=== PATIENT | female | born 1960 | race African-American/Black ===

== ENCOUNTER 2020-01-07 17:12 | Inpatient (IN) | payer OTHER ==
[~2020-01-07] VITALS: Ht 167.6 cm; Wt 80.1 kg
[2020-01-07 17:29] VITALS: BP 174/96
--- NOTE | 2020-01-07 17:59 | Diagnostic Imaging Report ---
Indications: Headache, trauma, status post fall Technique: Spiral acquisitions obtained through the brain. Angled axial and coronal 5 x 5 mm slices were reconstructed. Total dose length product 1072 mGycm. CTDI vol(s) 53 mGy. Dose reduction achieved using automated exposure control Comparison: None. Findings: There is age-related enlargement of the ventricles and extra-axial CSF spaces. Mild periventricular deep white matter low-attenuation is consistent with chronic microvascular ischemic change. The mastoids are clear. Visualized orbits and sinuses are unremarkable. The calvarium is intact Impression: Mild age-related changes. Negative for acute intracranial bleed or mass effect This agrees with the preliminary interpretation provided overnight by [facility]. The CT scanner at [facility] is accredited by the [employer] and the scans are performed using protocols designed to limit radiation exposure to as low as reasonably achievable to attain images of sufficient resolution adequate for diagnostic evaluation.
[2020-01-07 18:47] LABS: BASOPHILS % (AUTO) 0.7 % (0.0-2.0); HEMATOCRIT 46.8 % (37.0-47.0); HEMOGLOBIN 15.7 G/DL (12.0-16.0); LYMPHOCYTES % (AUTO) 21.6 % (20.0-45.0); MEAN CORPUSCULAR VOLUME 106 FL (80-99); MONOCYTES % (AUTO) 2.3 % (1.0-10.0); NEUTROPHILS % (AUTO) 75.3 % (45.0-75.0); PLATELET COUNT 375 K/UL (150-450); RED BLOOD COUNT 4.42 M/UL (4.20-5.40); RED CELL DISTRIBUTION WIDTH 11.7 % (11.6-14.8); WHITE BLOOD COUNT 9.7 K/UL (4.8-10.8)
[2020-01-07 18:50] LABS: APPEARANCE,URINE CLEAR; BILIRUBIN, URINE NEGATIVE (NEGATIVE); COLOR,URINE PALE YELLOW; GLUCOSE, URINE (UA) NEGATIVE (NEGATIVE); KETONES,URINE 1+ (NEGATIVE); LEUKOCYTE ESTERASE ,URINE NEGATIVE (NEGATIVE); NITRITE,URINE NEGATIVE (NEGATIVE); PH,URINE 5 (4.5-8.0); PROTEIN,URINE NEGATIVE (NEGATIVE); UROBILINOGEN,URINE NORMAL MG/DL (0.0-1.0)
[2020-01-07 18:53] LABS: ANION GAP 13 mmol/L (5-15); BLOOD UREA NITROGEN 8 mg/dL (7-18); CALCIUM 10.2 MG/DL (8.5-10.1); CARBON DIOXIDE 29 MMOL/L (21-32); CHLORIDE 100 MMOL/L (98-107); CREATININE 0.8 MG/DL (0.55-1.30); POTASSIUM 4.6 MMOL/L (3.5-5.1); SODIUM 142 MMOL/L (136-145)
[2020-01-07 19:03] LABS: ALANINE AMINOTRANSFERASE 48 U/L (12-78); ALBUMIN 3.9 G/DL (3.4-5.0); ALBUMIN/GLOBULIN RATIO 0.8 (1.0-2.7); ALKALINE PHOSPHATASE 184 U/L (46-116); ASPARTATE AMINO TRANSFERASE 71 U/L (15-37); BILIRUBIN,TOTAL 0.3 MG/DL (0.2-1.0)
[2020-01-07 19:15] VITALS: BP 123/80
[2020-01-07] MEDS ORDERED: Dextrose 10% 1,000 ML IV SCH ×2 (19:45→22:00)
--- NOTE | 2020-01-07 20:11 | Emergency Room Report ---
History of Present Illness General Chief Complaint: General Complaint Source: Patient Present Illness HPI 59-year-old female presents ED for evaluation of fall and weakness. Family at bedside states that patient had fall in bathroom at work. Hit her head. When EMS arrived stated that her blood sugar was 23. Was given glucose. Accu-Chek improved in ER triage. States that she is a diabetic. Takes Januvia. States that she is compliant with her medications. States that she did skip a meal. States that earlier this week she felt lightheaded and dizzy a few times. No change in dosage. Denies chest pain or shortness of breath. No other aggravating relieving factors. Denies any other associated symptoms Allergies: Coded Allergies: No Known Allergies (Unverified , 01/07/20) Patient History Past Medical History: DM, HTN Past Surgical History: none Pertinent Family History: none Social History: Denies: smoking, alcohol use, drug use Now: No Immunizations: UTD Reviewed Nursing Documentation: PMH: Agreed; PSxH: Agreed Nursing Documentation-PMH Past Medical History: No History, Except For Hx Hypertension: Yes Hx Diabetes: Yes Review of Systems All Other Systems: negative except mentioned in HPI Physical Exam Vital Signs Date Time Temp Pulse Resp B/P (MAP) Pulse Ox O2 Delivery O2 Flow Rate FiO2 01/07/20 17:20 98.2 111 16 174/96 (122) 95 Room Air Sp02 EP Interpretation: reviewed, normal General Appearance: no apparent distress, alert, GCS 15, non-toxic Head: normocephalic, atraumatic Eyes: bilateral eye normal inspection, bilateral eye PERRL ENT: hearing grossly normal, normal pharynx, no angioedema, normal voice Neck: full range of motion, supple/symm/no masses Respiratory: chest non-tender, lungs clear, normal breath sounds, speaking full sentences Cardiovascular #1: regular rate, rhythm, no edema Cardiovascular #2: 2+ carotid (R), 2+ carotid (L), 2+ radial (R), 2+ radial (L) , 2+ dorsalis pedis (R), 2+ dorsalis pedis (L) Gastrointestinal: normal bowel sounds, non tender, soft, non-distended, no guarding, no rebound Rectal: deferred Genitourinary: normal inspection, no CVA tenderness Musculoskeletal: back normal, normal range of motion, gait/station normal, non- tender Neurologic: alert, motor strength/tone normal, oriented x3, sensory intact, responsive, speech normal Psychiatric: judgement/insight normal, memory normal, mood/affect normal, no suicidal/homicidal ideation Reflexes: 3+ bicep (R), 3+ bicep (L), 3+ tricep (R), 3+ tricep (L), 3+ knee (R) , 3+ knee (L) Lymphatic: no adenopathy Medical Decision Making Diagnostic Impression: Primary Impression: Hypoglycemia Additional Impression: Head injury Qualified Codes: S09.90XA - Unspecified injury of head, initial encounter ER Course Hospital Course 59-year-old female presenting to ED with generalized weakness, fall with head injury; low FS in field Differential diagnoses include: dehyration, sepsis, hypoglycemia Clinical course Patient placed on stretcher. On home help aide. After initial history and physical I ordered labs, food, EKG, CT head She again became hypoglycemic. Given food. Labs-glucose 87, electrolytes ok, no leukocytosis, hb/hct stable EKG - NSR, no acute ischemic changes interpreted by me CXr - no acute process CT head - no acute process Patient states that multiple times this week she had similar weakness dizzy episodes probably due to becoming hypoglycemic. Case discussed with Dr. Braden and he agreed to accept the patient to his service for further care and support i. I feel this is a highly complex case requiring extensive working including EKG/Rhythm strip, Xray/CT/US, Blood/urine lab work, repeat exams while in ED, and administration of strong opiates/narcotics for pain control, admission to hospital or close patient follow up. diagnosis - hypoglycemia, head injury admitted to floor in serious condition Labs Test 01/07/20 18:00 White Blood Count 9.7 K/UL (4.8-10.8) Red Blood Count 4.42 M/UL (4.20-5.40) Hemoglobin 15.7 G/DL (12.0-16.0) Hematocrit 46.8 % (37.0-47.0) Mean Corpuscular Volume 106 FL (80-99) Mean Corpuscular Hemoglobin 35.6 PG (27.0-31.0) Mean Corpuscular Hemoglobin Concent 33.6 G/DL (32.0-36.0) Red Cell Distribution Width 11.7 % (11.6-14.8) Platelet Count 375 K/UL (150-450) Mean Platelet Volume 6.7 FL (6.5-10.1) Neutrophils (%) (Auto) 75.3 % (45.0-75.0) Lymphocytes (%) (Auto) 21.6 % (20.0-45.0) Monocytes (%) (Auto) 2.3 % (1.0-10.0) Eosinophils (%) (Auto) 0.0 % (0.0-3.0) Basophils (%) (Auto) 0.7 % (0.0-2.0) Urine Color Pale yellow Urine Appearance Clear Urine pH 5 (4.5-8.0) Urine Specific [place] 1.015 (1.005-1.035) Urine Protein Negative (NEGATIVE) Urine Glucose (UA) Negative (NEGATIVE) Urine Ketones 1+ (NEGATIVE) Urine Blood Negative (NEGATIVE) Urine Nitrite Negative (NEGATIVE) Urine Bilirubin Negative (NEGATIVE) Urine Urobilinogen Normal MG/DL (0.0-1.0) Urine Leukocyte Esterase Negative (NEGATIVE) Sodium Level 142 MMOL/L (136-145) Potassium Level 4.6 MMOL/L (3.5-5.1) Chloride Level 100 MMOL/L (98-107) Carbon Dioxide Level 29 MMOL/L (21-32) Anion Gap 13 mmol/L (5-15) Blood Urea Nitrogen 8 mg/dL (7-18) Creatinine 0.8 MG/DL (0.55-1.30) Estimat Glomerular Filtration Rate > 60 mL/min (>60) Glucose Level 87 MG/DL (74-106) Calcium Level 10.2 MG/DL (8.5-10.1) Total Bilirubin 0.3 MG/DL (0.2-1.0) Aspartate Amino Transf (AST/SGOT) 71 U/L (15-37) Alanine Aminotransferase (ALT/SGPT) 48 U/L (12-78) Alkaline Phosphatase 184 U/L (46-116) Troponin I 0.000 ng/mL (0.000-0.056) Pro-B-Type Natriuretic Peptide 60 pg/mL (0-125) Total Protein 8.6 G/DL (6.4-8.2) Albumin 3.9 G/DL (3.4-5.0) Globulin 4.7 g/dL Albumin/Globulin Ratio 0.8 (1.0-2.7) EKG Diagnostic Results Rate: normal Rhythm: NSR ST Segments: no acute changes ASA given to the pt in ED: No Rhythm Strip Diag. Results EP Interpretation: yes Rhythm: NSR, no PVC's, no ectopy Chest X-Ray Diagnostic Results Chest X-Ray Diagnostic Results : Chest X-Ray Ordered: Yes # of Views/Limited/Complete: 1 View Indication: Other EP Interpretation: Yes Interpretation: no consolidation, no effusion, no pneumothorax, no acute cardiopulmonary disease Impression: No acute disease Electronically Signed by: Electronically signed by Jermaine Grace MD CT/MRI/US Diagnostic Results CT/MRI/US Diagnostic Results : Imaging Test Ordered: CT Head Impression no acute process Last Vital Signs Date Time Temp Pulse Resp B/P (MAP) Pulse Ox O2 Delivery O2 Flow Rate FiO2 01/07/20 19:15 98.2 110 20 123/80 99 Room Air Status: improved Disposition: ADMITTED INPATIENT Condition: Serious Referrals: [facility],REFERRING (PCP) Jermaine Grace MD Jan 07, 2020 20:11
[2020-01-07 20:30] VITALS: BP 139/85
[2020-01-07] MEDS ORDERED: JANUMET 50-1,01 EACH ORAL (23:05)
[2020-01-07] MEDS ORDERED: NORVASC10 MG ORAL (23:05)
[2020-01-07] MEDS ORDERED: GLIPIZIDE ER10 MG PO (23:05)
[2020-01-07] MEDS ORDERED: LISINOPRIL40 MG ORAL (23:05)
[2020-01-07] MEDS ORDERED: ASPIRIN81 M3 PO (23:05)
[2020-01-08] VITALS (7 sets, daily range): BP systolic 108–129; BP diastolic 62–86
[2020-01-08 07:08] LABS: BASOPHILS % (AUTO) 1.4 % (0.0-2.0); EOSINOPHILS % (AUTO) 0.4 % (0.0-3.0); HEMATOCRIT 38.2 % (37.0-47.0); HEMOGLOBIN 13.6 G/DL (12.0-16.0); LYMPHOCYTES % (AUTO) 35.9 % (20.0-45.0); MEAN CORPUSCULAR VOLUME 102 FL (80-99); MONOCYTES % (AUTO) 6.4 % (1.0-10.0); PLATELET COUNT 310 K/UL (150-450); RED BLOOD COUNT 3.73 M/UL (4.20-5.40); RED CELL DISTRIBUTION WIDTH 10.9 % (11.6-14.8); WHITE BLOOD COUNT 5.9 K/UL (4.8-10.8)
[2020-01-08 07:20] LABS: ANION GAP 9 mmol/L (5-15); BLOOD UREA NITROGEN 9 mg/dL (7-18); CALCIUM 9.5 MG/DL (8.5-10.1); CARBON DIOXIDE 28 MMOL/L (21-32); CHLORIDE 103 MMOL/L (98-107); CREATININE 0.7 MG/DL (0.55-1.30); POTASSIUM 4.5 MMOL/L (3.5-5.1); SODIUM 140 MMOL/L (136-145)
[2020-01-08] MEDS: Lisinopril 20mg tab ORAL SCH (09:00)
[2020-01-08] MEDS: Aspirin Baby 81mg ORAL SCH (09:58)
--- NOTE | 2020-01-08 11:07 | Diagnostic Imaging Report ---
Indication: Chest pain Technique: One view of the chest Comparison: none Findings: Lungs and pleural spaces are clear. Heart size is normal. Impression: No acute process
--- NOTE | 2020-01-08 14:45 | History and Physical Report ---
DATE OF ADMISSION: 01/07/2020 HISTORY OF PRESENT ILLNESS: This is a very pleasant 59-year-old female who was brought to the hospital by family after apparently having passed out. Daughter reports that the patient has had previous episodes of passing out; however, this time it was because of low sugar. The patient was found to have a glucose of 23 in the field. She was given glucose. She was checked at [facility] and then subsequently again had hypoglycemia. The patient reports that she has been taking Januvia and glipizide for diabetes. She states that she had breakfast yesterday, which was light and then did not remember to take lunch. PAST MEDICAL HISTORY: Diabetes mellitus, hypertension. SOCIAL HISTORY: Denies alcohol or tobacco usage. Lives at home with family. HOME MEDICATIONS: Include Januvia, glipizide, lisinopril, aspirin, amlodipine. ALLERGIES: None. SURGERIES: None. PHYSICAL EXAMINATION: GENERAL: Reveals a 59-year-old female. HEENT: Unremarkable. CHEST: Clear breath sounds bilaterally. ABDOMEN: Soft. EXTREMITIES: There is no edema. NEUROLOGIC: Nonfocal. VITAL SIGNS: Blood pressure 110/80, heart rate 84, respirations 18, she is afebrile. LABORATORY TESTING: Shows normal CBC and BMP with glucose 87, now 122. Urinalysis negative. IMAGING STUDIES: Negative including head CT. IMPRESSION: 1. Hypoglycemia. 2. Use of long-acting oral hypoglycemic. 3. Hypertension. DISCUSSION: Admit to the hospital. Start D10 water. At this time, since her glucose is improved, I will discontinue D10 water. Monitor off of intravenous dextrose. Continue only Accu-Cheks and diabetes monitoring. We will resume Januvia after 24 hours. Discharge planning for home in 24 hours. Discussed with family. Advice to discontinue glipizide permanently. Cj Braden M.D. DR: RODRIGO JOB#: [id number] CC:
[2020-01-09] VITALS: BP 115/70
[2020-01-09 04:00] VITALS: BP 119/76
[2020-01-09 06:03] LABS: ANION GAP 8 mmol/L (5-15); BLOOD UREA NITROGEN 9 mg/dL (7-18); CALCIUM 9.5 MG/DL (8.5-10.1); CARBON DIOXIDE 28 MMOL/L (21-32); CHLORIDE 104 MMOL/L (98-107); CREATININE 0.7 MG/DL (0.55-1.30); POTASSIUM 4.3 MMOL/L (3.5-5.1); SODIUM 140 MMOL/L (136-145)
[2020-01-09 06:13] LABS: EOSINOPHILS % (AUTO) 0.8 % (0.0-3.0); HEMATOCRIT 38.4 % (37.0-47.0); HEMOGLOBIN 13.6 G/DL (12.0-16.0); LYMPHOCYTES % (AUTO) 45.6 % (20.0-45.0); MEAN CORPUSCULAR VOLUME 102 FL (80-99); MONOCYTES % (AUTO) 6.8 % (1.0-10.0); NEUTROPHILS % (AUTO) 44.8 % (45.0-75.0); PLATELET COUNT 290 K/UL (150-450); RED BLOOD COUNT 3.75 M/UL (4.20-5.40); RED CELL DISTRIBUTION WIDTH 10.7 % (11.6-14.8); WHITE BLOOD COUNT 4.6 K/UL (4.8-10.8)
[2020-01-09 08:49] VITALS: BP 112/70
[2020-01-09] MEDS: Aspirin Baby 81mg ORAL SCH (08:57)
[2020-01-09] MEDS: Lisinopril 20mg tab ORAL SCH (09:00)
[2020-01-09] MEDS ORDERED: GLUCOPHAGE1000 MG ORAL (10:11)
[2020-01-09] MEDS ORDERED: JANUVIA100 MG ORAL (10:11)
[2020-01-09 12:29] VITALS: BP 120/77
--- NOTE | 2020-01-11 22:01 | Discharge Summary ---
Discharge Summary Discharge Summary _ DATE OF ADMISSION: 01/07/2020 DATE OF DISCHARGE: 01/09/2020 DISCHARGED BY: Dr. Braden REASON FOR ADMISSION: 59 years old female with past medical history of diabetes mellitus, hypertension , was brought to the hospital by family after she passed out. Daughter reported that it was due to low blood sugar. Patient was found to have glucose of 23 in the field. Patient received glucose in the field. Patient subsequently presented to [facility] and had another episode of hypoglycemia. Patient reported taking Januvia and glipizide for diabetes. Patient reported breakfast , which was very light and she did not remember if she had lunch. Laboratory work-up revealed glucose 87, improved to 122 . Urinalysis was unremarkable. CT of the head revealed no acute intracranial pathology. Patient subsequently admitted for further management. HOSPITAL COURSE: Patient admitted to medical surgical floor and started on D10 IV fluids. Blood sugar improved. Blood sugar was closely monitored. Initially all anti-glycemics were hold. After blood sugar stabilized, patient was recommended to resume Januvia after 24 hours. Patient was advised to discontinue glipizide permanently. Diabetic teaching provided . Plan of care and further management were discussed with patient and her family. Blood pressure was managed with RAFA inhibitor and calcium channel natasha , and remained stable. Patient clinically stabilized and was ready for discharge. FINAL DIAGNOSES: Hypoglycemia Use of long-acting oral hypoglycemic Hypertension DISCHARGE MEDICATIONS: See Medication Reconciliation list. DISCHARGE INSTRUCTIONS: Patient was discharged home. Follow-up with a primary care provider in 1 week. I have been assigned to dictate discharge summary for this account. I was not involved in the patient's management. Renata Hager NP Jan 11, 2020 22:01
== END 2020-01-09 12:59 | disposition home or self-care (01) | DRG 420 ==
LOC: EMR 18:34 → 4E 19:31 → EDBEDREQ 19:45 → 4E 20:53
DX: E11.649 Type 2 diabetes mellitus with hypoglycemia without coma (principal); I10 Essential (primary) hypertension; Z79.84 Long term (current) use of oral hypoglycemic drugs; Z79.82 Long term (current) use of aspirin
CPT/HCPCS: 36415; 70450; 71045; 80048; 80053; 81003; 82962; 83880; 84484; 85025; 93005; 99285